=== PATIENT | male | born 1980 | race Caucasian/White ===

== ENCOUNTER 2020-06-05 20:52 | Emergency (ER) | payer SELFPAY ==
[~2020-06-05] VITALS: Ht 167.6 cm; Wt 72.7 kg
[2020-06-05 21:11] VITALS: BP 123/83; Ht 167.6 cm; Wt 72.7 kg
== END 2020-06-05 22:39 | disposition home or self-care (01) ==
LOC: D.ER 20:52
DX: S61.112A Laceration without foreign body of left thumb with damage to nail, initial encounter (principal); X58.XXXA Exposure to other specified factors, initial encounter